=== PATIENT | female | born 1965 | race Caucasian/White ===

== ENCOUNTER 2021-02-14 07:34 | Emergency (ER) | payer BC, SELFPAY ==
[~2021-02-14] VITALS: Ht 162.6 cm; Wt 90.7 kg
[2021-02-14 08:00] VITALS: BP 130/80
--- NOTE | 2021-02-14 08:23 | NUR ---
PATIENT AMBULATED TO BED 10.
--- NOTE | 2021-02-14 08:25 | NUR ---
55 YO FEMALE BIBS C/O SORE THROAT. PAIN 10/10 WITH SWALLOWING. PT STATES SHE HAS ACID REFLUX AND IT BURNED HER THROAT. SHE STATES 1 YR AGO SHE HAD LARYNGITIS D/T HER ACID REFLUX. PATIENT DENIES FEVER, CHILLS, N/V/D. SHE STATES AT NIGHT SHE DOES HAVE SOB, AT TIMES WAKING UP GASPING FOR AIR. PT STATES SHE HAS SLEEP APNEA AND COPD. AT THIS TIME PATIENT PLACED ON MONITOR, O2 SAT 97%, RR EVEN AND UNLABORED. UPON ASSESSMENT PATIENTS THROAT IS RED, WITH WHITE PATCHES. PATIENT STATES 2 DAYS AGO SHE TOOK CLARITIN WHICH MADE HER THROAT MORE DRY AND WORSE. HAS ALSO TAKEN TYLENOL 2 DAYS AGO WHICH PROVIDED LITTLE RELIEF. A&OX4, GCS 15. PMH: HTN, DM2, COPD, SLEEP APNEA NKDA
--- NOTE | 2021-02-14 08:32 | NUR ---
MD CISSE AT BEDSIDE EVALUATING PATIENT.
--- NOTE | 2021-02-14 09:01 | NUR ---
STREP TEST AND NOVEL TEST COLLECTED AND WALKED OVER TO LAB.
[2021-02-14] MEDS ORDERED: NAPR-1704 PO (09:56)
--- NOTE | 2021-02-14 09:59 | NUR ---
DR CISSE AT BEDSIDE SPEAKING WITH PT.
[2021-02-14 10:05] VITALS: BP 142/75
--- NOTE | 2021-02-14 10:05 | NUR ---
Patient discharged with v/s stable. Written and verbal after care instructions FOR TONSILLITIS AND INDIGESTION given and explained. Patient alert, oriented and verbalized understanding of instructions. Ambulatory with steady gait. All questions addressed prior to discharge. ID band removed. Patient advised to follow up with PMD. Rx of NAPROXEN given. Patient educated on indication of medication including possible reaction and side effects. Opportunity to ask questions provided and answered.
== END 2021-02-14 10:05 | disposition home or self-care (01) ==
LOC: MED 07:34
DX: J03.90 Acute tonsillitis, unspecified (principal); Z20.822 Contact with and (suspected) exposure to COVID-19; K21.9 Gastro-esophageal reflux disease without esophagitis; F17.290 Nicotine dependence, other tobacco product, uncomplicated; J44.9 Chronic obstructive pulmonary disease, unspecified; E11.9 Type 2 diabetes mellitus without complications; I10 Essential (primary) hypertension; Z79.899 Other long term (current) drug therapy
CPT/HCPCS: 87081; 99283; U0003

== ENCOUNTER 2021-03-05 00:52 | Emergency (ER) | payer MEDICAID, SELFPAY ==
[~2021-03-05] VITALS: Ht 162.6 cm; Wt 90.7 kg
[~2021-03-05 00:52] MED LIST: NAPR-1704 PO
[2021-03-05 00:55] VITALS: BP 143/90
--- NOTE | 2021-03-05 00:58 | NUR ---
TO LOBBY A/W BED AMBULATORY
[2021-03-05] MEDS ORDERED: ONDANSETRON 4 MG/2 ML VIAL IVP ONE (01:15)
[2021-03-05] MEDS ORDERED: MORPHINE SULFATE 2 MG/ML SYR IVP ONE (01:15)
[2021-03-05] MEDS ORDERED: CLINDAMYCIN 600 MG in DEXTROSE 5% 50 ML IV ONE (01:15)
[2021-03-05] MEDS ORDERED: DEXAMETHASONE 10 MG/ML VIAL IVP ONE (01:15)
--- NOTE | 2021-03-05 02:09 | NUR ---
PT ELOPED AT [id number]
[2021-03-05 02:42] LABS: BASOPHILS # (AUTO) 0.1 K/uL (0.00-0.22); BASOPHILS % (AUTO) 1.4 % (0.0-2.0); EOSINOPHILS # (AUTO) 0.4 K/uL (0-0.4); EOSINOPHILS % (AUTO) 6.1 % (0.0-4.0); HEMATOCRIT 39.6 % (36-48); HEMOGLOBIN 13.6 g/dL (12.0-16.0); LYMPHOCYTES # (AUTO) 2.5 K/uL (2.5-16.5); LYMPHOCYTES % (AUTO) 37.8 % (20.5-51.1); MEAN CORPUSCULAR HEMOGLOBIN 30 pg (27-31); MEAN CORPUSCULAR HGB CONC 34 g/dL (33-37); MEAN CORPUSCULAR VOLUME 86.3 fL (80-94); MONOCYTES # (AUTO) 0.9 K/uL (0.8-1.0); MONOCYTES % (AUTO) 13.6 % (1.7-9.3); NEUTROPHILS # (AUTO) 2.8 K/uL (1.8-7.7); NEUTROPHILS % (AUTO) 41.1 % (42.2-75.2); PLATELET COUNT (AUTO) 358 K/uL (140-450); RED BLOOD CELL COUNT(AUTO) 4.59 MIL/uL (4.20-5.40); RED CELL DISTRIBUTION WIDTH 12.9 % (11.6-13.7); WHITE BLOOD COUNT (AUTO) 6.7 K/uL (4.8-10.8)
[2021-03-05] MEDS ORDERED: ONDANSETRON 4 MG/2 ML VIAL ONE (02:52)
[2021-03-05] MEDS ORDERED: CLINDAMYCIN 600 MG/4 ML VIAL ONE (02:52)
[2021-03-05] MEDS ORDERED: MORPHINE SULFATE 2 MG/ML SYR ONE (02:52)
[2021-03-05] MEDS ORDERED: DEXAMETHASONE 10 MG/ML VIAL ONE (02:52)
[2021-03-05 03:00] LABS: ALBUMIN 3.2 g/dL (3.4-5.0); ANION GAP 10.4 (8-16); CARBON DIOXIDE 29.2 mmol/L (21-32); CREATININE 0.7 mg/dL (0.6-1.3); POTASSIUM 3.6 mmol/L (3.5-5.1)
--- NOTE | 2021-03-05 03:10 | NUR ---
55 YO/F BIB SELF W C/O SORE THROAT X2 WEEKS 10/10 W DIFFICULTY SWALLOWING, COUGH, SOB, AND INTERMITTENT FEVER. PATIENT REPORTS PAIN WORSENS WHEN SWALLOWING. PATIENT DENIES ANY CHEST PAIN, BLOOD IN COUGH SECRETIONS, N/V/D, HEADACHE OR DIZZYNESS. PATIENT ALSO REPORTS X3 GENITAL AREA SORES APPEARING X3 DAYS AGO AND PAINFUL. DENIES ABNORMAL DISCHARGE. DENIES ANY ONE SICK AT HOME. BREATHING EVEN AND UNLABORED, LUNGS SOUNDS CLEAR THROUGHOUT. TONSILS SWOLLEN W REDNESS TO THROAT. PATIENT ABLE TO SPEAK IN FULL SENTENCES VSS. PATIENT LAYING IN BED LOCKED IN LOWEST POSITION, HOB ELEVATED, X1 SIDERAIL UP. CONNECTED TO MONITOR. WILL CONTINUE TO MONITOR. PMH:DIABETES, HTN, SLEEP APNEA, COPD, GERD NKA
--- NOTE | 2021-03-05 03:18 | NUR ---
PATIENT SAMPLES FOR COVID-19 AND STREP THROAT COLLECTED.
--- NOTE | 2021-03-05 03:50 | NUR ---
PATIENT TAKEN TO CT VIA GURNEY.
--- NOTE | 2021-03-05 04:10 | NUR ---
PATIENT LAYING IN BED W EYES CLOSED, BED LOCKED IN LOWEST POSITION W X1 SIDERAIL UP. BREATHING EVEN AND UNLABORED. CONNECTED TO MONITOR W VSS.
--- NOTE | 2021-03-05 06:10 | NUR ---
PATIENT LAYING IN BED LOCKED IN LOWEST POSITION, X1 SIDERAIL UP. AWAKE. REPORTS SHE FEELS ALOT BETTER. BREATHING EVEN AND UNLABORED. PATIENT CONNECTED TO MONITOR W VSS. NAD NOTED, WILL CONTINUE TO MONITOR.
--- NOTE | 2021-03-05 07:00 | NUR ---
REPORT CALLED TO MATT BENOIT FROM [facility] ER FOR TRANSFER OF PATIENT CARE AT THIS TIME.
--- NOTE | 2021-03-05 07:05 | NUR ---
PATIENT AMBULATED TO BATHROOM W STEADY GAIT.
[2021-03-05 07:30] VITALS: BP 129/69
--- NOTE | 2021-03-05 07:30 | NUR ---
Patient to be transferred to [facility]. Is being transferred due to HIGHER LEVEL OF CARE. Receiving facility has accepting physician and available space. ER physician has signed transfer form. Patient or responsible democrat has agreed to transfer and signed form. Patient belongings inventoried and will be sent with patient. Copy of nursing notes, lab reports, EKG, Physicians Orders and X-rays to be sent with patient. Report called to at receiving facility. [facility] ambulance service TRANSFERED PATIENT AT THIS TIME.
== END 2021-03-05 07:30 | disposition short-term general hospital (02) ==
LOC: MED 00:52
DX: J03.90 Acute tonsillitis, unspecified (principal); R13.10 Dysphagia, unspecified; Z20.822 Contact with and (suspected) exposure to COVID-19
CPT/HCPCS: 70491; 80053; 85025; 87081; 87426; 96365; 96375; 99285; J1100; J2270; J2405; J3490; Q9967; U0003